=== PATIENT | female | born 2000 | race Caucasian/White ===

== ENCOUNTER 2019-03-04 20:22 | Inpatient (IN) ==
[2019-03-05] MEDS ORDERED: ONDANSETRON 4 MG/2 ML VIAL IV STA (00:03)
[2019-03-05] MEDS ORDERED: METOCLOPRAMIDE 10 MG/2 ML VIAL IV STA (00:03)
[2019-03-05] MEDS ORDERED: PANTOPRAZOLE 40 MG VIAL IV STA (00:03)
[2019-03-05] MEDS ORDERED: PIPERACILLIN/TAZOBACTAM 3,375 MG in SODIUM CHLORIDE 0.9% 100 ML IV STA (00:03)
[2019-03-05] MEDS ORDERED: POTASSIUM BICARB EFFERVESCENT 25 MEQ TABLET PO ONE (00:29)
[2019-03-05] MEDS ORDERED: fentaNYL 100 MCG/2 ML VIAL IV PRN (00:31)
[2019-03-05] MEDS: SODIUM CHLORIDE 0.9% 1,000 ML IV SCH ×2 (03:48→23:09)
[2019-03-05] MEDS: METOCLOPRAMIDE 10 MG/2 ML VIAL IV SCH ×4 (05:27→23:06)
[2019-03-05 05:35] LABS: PT Patient Result 11.1 SECS; Partial Thromboplastin Time 24.8 SECS (0-40)
[2019-03-05 08:13] LABS: Basophils # 0.1 10*3/uL (0.0-0.2); Basophils % 0.4 % (0.0-0.8); Eosinophils % 0.1 % (0.00-10.9); Hemoglobin 14.1 GM/DL (12.0-16.0); Immature Granulocytes % 0.5 %; Immature Granulocytes Absolute 0.06 #; Lymphocytes # 1.8 10*3/uL (1.4-4.0); Lymphocytes % 15.8 % (21.3-54.2); Mean Corpuscular HGB Conc 34.4 GM/DL (32-36); Mean Corpuscular Volume 89.1 FL (87-102); Monocytes % 11.4 % (1.7-12.7); Neutrophils % 71.8 % (38.7-73.9); Platelet Count 355 T/CUMM (130-400); Red Cell Distribution Width 12.3 % (9.3-17.3); White Blood Count 11.4 T/CUMM (4-12)
[2019-03-05 08:22] LABS: Calcium 9.5 MG/DL (8.5-10.1); Osmolality,Calculated 275.7 MOS/KG (273-304)
[2019-03-05 08:27] LABS: Amorphous Crystals,Urine Occasional /HPF (Few); Apearance,Urine CLEAR (Clear); Bacteria,Urine Occasional /HPF (Few); Bilirubin,Urine Negative (Negative); Blood, Urine Negative (Negative); Glucose,Urine (UA) Negative (Negative); Ketones,Urine 20 mg/dL (Negative); Mucus,Urine Occasional /LPF (Occasional); Nitrite,Urine Negative (Negative); Protein,Urine Negative; RBC,Urine 1 /HPF (0-4); Squamous Epithelial Cell,Urine Few /HPF (0-10); Urine Color Yellow (Yellow); Urine Specific Gravity 1.017 (1.001-1.035); WBC,Urine 2 /HPF (0-6)
[2019-03-05] MEDS: PIPERACILLIN/TAZOBACTAM 3,375 MG in SODIUM CHLORIDE 0.9% 100 ML IV SCH ×2 (08:52→17:10)
[2019-03-05 08:59] LABS: Albumin 4.6 G/DL (3.4-5.0); Bilirubin,Direct 0.84 MG/DL (0.0-0.20); Bilirubin,Indirect 1.5 MG/DL (0.0-1.0); Bilirubin,Total 2.3 MG/DL (0.2-1.0); Total Protein 8.4 G/DL (6.4-8.3)
[2019-03-05] MEDS ORDERED: PANTOPRAZOLE 40 MG VIAL IV SCH (09:00)
[2019-03-05] MEDS: ONDANSETRON 4 MG/2 ML VIAL IV PRN ×2 (15:24→20:38)
[2019-03-05] MEDS: PROMETHAZINE 25 MG/1 ML VIAL IM PRN (17:10)
[2019-03-05] MEDS: MULTIVITAMIN (CENTRUM) TABLET PO SCH (20:30)
[2019-03-05] MEDS: PANTOPRAZOLE 40 MG VIAL IV SCH (20:33)
[2019-03-06] MEDS: SODIUM CHLORIDE 0.9% 1,000 ML IV SCH ×3 (00:30→14:18)
[2019-03-06] MEDS: PIPERACILLIN/TAZOBACTAM 3,375 MG in SODIUM CHLORIDE 0.9% 100 ML IV SCH ×3 (01:49→17:58)
[2019-03-06] MEDS: ONDANSETRON 4 MG/2 ML VIAL IV PRN ×3 (02:53→19:38)
[2019-03-06] MEDS: MORPHINE 4 MG/1 ML VIAL IV PRN ×2 (02:54→20:52)
[2019-03-06 04:37] LABS: Basophils # 0.1 10*3/uL (0.0-0.2); Basophils % 0.9 % (0.0-0.8); Eosinophils # 0.1 10*3/uL (0.0-0.87); Eosinophils % 0.5 % (0.00-10.9); Hematocrit 38.6 VOL% (35.7-47.0); Immature Granulocytes Absolute 0.09 #; Lymphocytes # 2.1 10*3/uL (1.4-4.0); Lymphocytes % 23.1 % (21.3-54.2); Mean Corpuscular HGB Conc 33.7 GM/DL (32-36); Mean Platelet Volume 9.7 FL (9.6-12.0); Monocytes % 12.1 % (1.7-12.7); Neutrophils % 62.4 % (38.7-73.9); Platelet Count 313 T/CUMM (130-400); Red Blood Count 4.29 MC/CUMM (3.8-5.5); Red Cell Distribution Width 12.3 % (9.3-17.3); White Blood Count 9.2 T/CUMM (4-12)
[2019-03-06 05:06] LABS: Bilirubin,Direct 0.28 MG/DL (0.0-0.20); Bilirubin,Indirect 1.7 MG/DL (0.0-1.0); Total Protein 7.2 G/DL (6.4-8.3)
[2019-03-06] MEDS: METOCLOPRAMIDE 10 MG/2 ML VIAL IV SCH ×3 (05:57→17:58)
[2019-03-06] MEDS: PANTOPRAZOLE 40 MG VIAL IV SCH ×2 (09:26→20:55)
[2019-03-06] MEDS: MULTIVITAMIN (CENTRUM) TABLET PO SCH ×2 (09:26→20:52)
[2019-03-06] MEDS: PROMETHAZINE 25 MG/1 ML VIAL IM PRN (15:33)
[2019-03-07] MEDS: METOCLOPRAMIDE 10 MG/2 ML VIAL IV SCH ×4 (00:32→17:03)
[2019-03-07] MEDS: PIPERACILLIN/TAZOBACTAM 3,375 MG in SODIUM CHLORIDE 0.9% 100 ML IV SCH ×3 (00:34→17:03)
[2019-03-07] MEDS: SODIUM CHLORIDE 0.9% 1,000 ML IV SCH ×4 (01:19→23:32)
[2019-03-07] MEDS: ONDANSETRON 4 MG/2 ML VIAL IV PRN (03:23)
[2019-03-07] MEDS ORDERED: INDOMETHACIN SUPP 50 MG SUPP RECTAL ONE (06:10)
[2019-03-07] MEDS ORDERED: LIDOCAINE 2% 5 ML VIAL ONE (09:00)
[2019-03-07] MEDS ORDERED: SUCCINYLCHOLINE 200 MG/10 ML VIAL ONE (09:00)
[2019-03-07] MEDS ORDERED: PROPOFOL 200 MG/20 ML VIAL IV ONE ×2 (09:00→15:06)
[2019-03-07] MEDS ORDERED: ONDANSETRON 4 MG/2 ML VIAL ONE ×2 (09:00→15:06)
[2019-03-07] MEDS: PANTOPRAZOLE 40 MG VIAL IV SCH ×2 (09:09→20:27)
[2019-03-07] MEDS: LACTATED RINGERS 1,000 ML IV SCH (09:10)
[2019-03-07] MEDS: MULTIVITAMIN (CENTRUM) TABLET PO SCH ×2 (10:20→20:29)
[2019-03-07] MEDS ORDERED: MIDAZOLAM 2 MG/2 ML VIAL ONE ×2 (10:53→15:06)
[2019-03-07] MEDS ORDERED: fentaNYL 100 MCG/2 ML VIAL ONE ×2 (10:53→15:06)
[2019-03-07] MEDS ORDERED: SEVOFLURANE 1 UNIT/15 MINUTE INH ONE ×2 (11:57→15:06)
[2019-03-07] MEDS ORDERED: TISSUE ADHESIVE 1 EACH APPLICATOR TOP ONE (13:19)
[2019-03-07] MEDS ORDERED: BUPIVACAINE 0.25% /EPI 10 ML VIAL ONE (13:19)
[2019-03-07] MEDS ORDERED: LIDOCAINE 1% 20 ML VIAL ONE (13:20)
[2019-03-07] MEDS ORDERED: GLYCOPYRROLATE 0.4 MG/2 ML VIAL ONE (15:06)
[2019-03-07] MEDS ORDERED: DEXAMETHASONE 4 MG/1 ML VIAL ONE (15:06)
[2019-03-07] MEDS ORDERED: KETOROLAC 30 MG/1 ML VIAL ONE (15:06)
[2019-03-07] MEDS ORDERED: NEOSTIGMINE 10 MG/10 ML VIAL ONE (15:07)
[2019-03-07] MEDS ORDERED: ROCURONIUM 100 MG/10 ML VIAL IV ONE (15:07)
[2019-03-07] MEDS ORDERED: LACTATED RINGERS 1,000 ML IV ONE (15:07)
[2019-03-07] MEDS ORDERED: PHENYLEPHRINE 1 MG/10 ML SYRINGE IV ONE (15:07)
[2019-03-07] MEDS: MORPHINE 4 MG/1 ML VIAL IV PRN ×2 (17:04→22:53)
[2019-03-08] MEDS: METOCLOPRAMIDE 10 MG/2 ML VIAL IV SCH ×3 (00:11→11:30)
[2019-03-08] MEDS: PIPERACILLIN/TAZOBACTAM 3,375 MG in SODIUM CHLORIDE 0.9% 100 ML IV SCH ×2 (00:13→10:04)
[2019-03-08] MEDS: MORPHINE 4 MG/1 ML VIAL IV PRN (05:14)
[2019-03-08] MEDS: PANTOPRAZOLE 40 MG VIAL IV SCH (10:03)
[2019-03-08] MEDS: MULTIVITAMIN (CENTRUM) TABLET PO SCH (10:03)
[2019-03-08] MEDS: LACTATED RINGERS 1,000 ML IV SCH (11:27)
[2019-03-08] MEDS: SODIUM CHLORIDE 0.9% 1,000 ML IV SCH (11:27)
[2019-03-08 11:28] VITALS: BP 122/83
== END 2019-03-08 12:32 | disposition home or self-care (01) | DRG 419 ==
LOC: N.ED 20:22 → N.EDINP 03-05 00:30 → N.3E 03-05 01:14
PROVIDERS: ADMIT Surgery; ATTEND Surgery
PROC: ERCPWSP (ICD-10-PCS; 2019-03-07 09:05)
PROC: LAPCHOL (2019-03-07 13:45)